=== PATIENT | male | born 2000 | race Two or more races ===

== ENCOUNTER → 2022-10-15 | Outpatient (CLI) | payer OTHER | END | disposition home or self-care (01) | LOC: PPH VACUNA | PROVIDERS: ATTEND Emergency Medicine Pediatric Emergency Medicine | DX: Z23 Encounter for immunization (principal) ==

== ENCOUNTER 2023-10-02 17:17 | Emergency (ER) | payer OTHER ==
[~2023-10-02] VITALS: Ht 177.8 cm; Wt 83.0 kg
[2023-10-02] MEDS ORDERED: HYOSCYAMINE SULFATE 0.125 MG TAB.SUBL SL ONE (18:00)
[2023-10-02] MEDS ORDERED: 0.9 % SODIUM CHLORIDE 1,000 ML IV ONE (18:00)
[2023-10-02] MEDS ORDERED: ONDANSETRON HCL 2 MG/ML VIAL IV ONE (18:00)
[2023-10-02] MEDS ORDERED: ONDANSETRON HCL 2 MG/ML VIAL ONE (18:00)
[2023-10-02] MEDS ORDERED: FAMOTIDINE/PF 20 MG/2 ML VIAL ONE (18:00)
[2023-10-02] MEDS ORDERED: HYOSCYAMINE SULFATE 0.125 MG TAB.SUBL ONE (18:07)
[2023-10-02 18:14] LABS: HEMATOCRIT 48.9 % (39.0-48.0); MEAN CELL VOLUME 86.9 fL (80.0-100.00); MEAN CORPUSCULAR HEMOGLOBIN 30.2 pg (27.00-32.0); MEAN CORPUSCULAR HGB CONC 34.8 g/dl (32.0-36.0); PLATELET COUNT 246 K/uL (150-450); RED BLOOD COUNT 5.62 M/uL (4.00-6.00); RED CELL DISTRIBUTION WIDTH 12.9 % (11.5-14.5)
[2023-10-02 18:44] LABS: ALBUMIN 4.4 gm/dL (3.4-5.0); BILIRUBIN TOTAL 0.97 mg/dL (0.3-1.2); CALCIUM 9.5 mg/dL (8.5-10.1); CREATININE SERUM 0.98 mg/dL (0.70-1.30); GFR 96.55; GLOBULINA 3.1 G/DL (2.4-3.5); POTASSIUM 3.66 mEq/L (3.5-5.1); TOTAL PROTEIN 7.5 gm/dL (6.4-8.2)
[2023-10-02] MEDS ORDERED: METOCLOPRAMIDE HCL 5 MG/ML VIAL ONE (20:26)
[2023-10-02] MEDS ORDERED: METOCLOPRAMIDE HCL 5 MG/ML VIAL IM ONE (20:30)
== END 2023-10-02 20:41 | disposition home or self-care (01) ==
LOC: ER 17:18
PROVIDERS: General Practice
DX: B34.9 Viral infection, unspecified (principal); Z20.822 Contact with and (suspected) exposure to COVID-19

== ENCOUNTER 2024-05-15 14:58 | Emergency (ER) | payer OTHER ==
[~2024-05-15] VITALS: Ht 177.8 cm; Wt 83.9 kg
[2024-05-15] MEDS ORDERED: MEDROLPACK PO (18:43)
[2024-05-15] MEDS ORDERED: AZITHROMYCIN500 MG PO (18:43)
[2024-05-15] MEDS ORDERED: ZYRTEC10 MG PO (18:43)
[2024-05-15] MEDS ORDERED: PEPCID AC20 MG PO (18:43)
[2024-05-15] MEDS ORDERED: CEFTRIAXONE SODIUM 1,000 MG VIAL IM ONE (18:45)
[2024-05-15] MEDS ORDERED: FAMOtidine 10 MG/ML (4ML VIAL) IV PUSH ONE (18:45)
== END 2024-05-15 19:06 | disposition home or self-care (01) ==
LOC: ER 14:59
DX: R53.81 Other malaise (principal); A49.3 Mycoplasma infection, unspecified site